=== PATIENT | female | born 2000 | race Two or more races ===

== ENCOUNTER 2019-06-06 04:25 | Emergency (ER) | payer MEDICAID ==
[~2019-06-06] VITALS: Ht 165.1 cm; Wt 59.0 kg
--- NOTE | 2019-06-06 04:40 | NUR ---
bib friends for c/o "can not breath" . pt is satting at 98-100% on R/A . A, Ox4. very anxious and scared. reported having alcohol nad "someone else's alcohol" pt was placed on a montior ,VSS.
--- NOTE | 2019-06-06 05:55 | NUR ---
pt awake and alert. Medically clear for d/c home. Patient discharged to home in stable condition. Written and verbal after care instructions given. Patient verbalizes understanding of instruction. friend will provide ride to the pt. pt noted w. steady gaits upon discharge
[2019-06-06 05:57] VITALS: BP 112/51
== END 2019-06-06 05:58 | disposition home or self-care (01) ==
LOC: ER 04:25
DX: F41.9 Anxiety disorder, unspecified (principal); Z98.890 Other specified postprocedural states